=== PATIENT | female | born 1960 | race Caucasian/White ===

== ENCOUNTER 2017-05-08 05:45 | Day surgery (SDC) | payer OTHER ==
[~2017-05-08] VITALS: Ht 170.2 cm; Wt 71.5 kg
[2017-05-08] MEDS ORDERED: EPINEPHRINE TOPICAL SOLN 1 MG/ML, 30ML ONE (06:58)
[2017-05-08] MEDS ORDERED: LIDOCAINE/PF 1%, 30ML ONE (06:58)
[2017-05-08] MEDS ORDERED: EPINEPHRINE 1 MG/ML, 1ML ONE (06:58)
[2017-05-08] MEDS ORDERED: LIDOCAINE 1%, 2ML ONE (07:02)
[2017-05-08] MEDS ORDERED: LACTATED RINGERS 1,000 ML IV SCH (07:06)
[2017-05-08 07:07] VITALS: BP 136/86
[2017-05-08] MEDS ORDERED: FLUT9.9S INH (07:20)
[2017-05-08] MEDS ORDERED: OMEP-110 PO (07:20)
[2017-05-08] MEDS ORDERED: FENTANYL PF 100 MCG/2ML ONE (07:24)
[2017-05-08] MEDS ORDERED: PROPOFOL 10 MG/ML, 20ML ONE (07:29)
[2017-05-08] MEDS ORDERED: ROCURONIUM 10 MG/ML ONE (07:29)
[2017-05-08] MEDS ORDERED: METOCLOPRAMIDE 5 MG/ML, 2ML ONE (07:29)
[2017-05-08] MEDS ORDERED: DEXAMETHASONE 4 MG/ML, 1ML ONE (07:29)
[2017-05-08] MEDS ORDERED: SUCCINYLCHOLINE 20 MG/ML, 10ML ONE (07:29)
[2017-05-08] MEDS ORDERED: ONDANSETRON 2MG/ML, 2ML ONE (07:29)
[2017-05-08] MEDS ORDERED: LIDOCAINE 1%, 2ML SQ PRN (07:30)
[2017-05-08] MEDS ORDERED: OXYcodone 5 MG/5 ML ORAL.SOL UDC PO PRN (08:00)
[2017-05-08] MEDS ORDERED: MIDAZOLAM 1 MG/ML, 2ML IV PRN (08:00)
[2017-05-08] MEDS ORDERED: ONDANSETRON 2MG/ML, 2ML IVPush PRN (08:00)
[2017-05-08] MEDS ORDERED: HYDROmorphone 1 MG/ML, 1ML IV PRN (08:00)
[2017-05-08] MEDS ORDERED: FENTANYL PF 100 MCG/2ML IV PRN (08:00)
[2017-05-08] MEDS ORDERED: MEPERIDINE/PF 25MG/0.5ML IVPush PRN (08:00)
[2017-05-08] MEDS ORDERED: LABETALOL 5MG/ML, 20ML IV PRN (08:00)
[2017-05-08] MEDS ORDERED: PROMETHAZINE 25 MG/ML, 1ML IV PRN (08:00)
[2017-05-08] MEDS ORDERED: hydrALAzine 20 MG/ML, 1ML IV PRN (08:00)
== END 2017-05-08 09:30 ==
LOC: OUT 05:45
PROVIDERS: ATTEND Otolaryngology
DX: J38.1 Polyp of vocal cord and larynx (principal)
CPT/HCPCS: 31536; 88304; J0330; J1100; J2405; J2704; J2765; J3010; J3490; J7120; J0171